=== PATIENT | female | born 2005 | race Two or more races ===

== ENCOUNTER 2023-07-02 16:15 | Emergency (ER) | payer OTHER ==
[~2023-07-02] VITALS: Ht 160 cm; Wt 54.4 kg
== END 2023-07-02 18:52 | disposition home or self-care (01) ==
LOC: ER 16:15 → EMR PED 16:20 → ER 16:20
DX: O26.891 Other specified pregnancy related conditions, first trimester (principal); Z3A.08 8 weeks gestation of pregnancy; R53.1 Weakness; Z88.6 Allergy status to analgesic agent